=== PATIENT | male | born 1995 | race Two or more races ===

== ENCOUNTER 2023-08-22 15:53 | Emergency (ER) | payer OTHER ==
[~2023-08-22] VITALS: Ht 175.3 cm; Wt 90.0 kg
[2023-08-22 16:04] VITALS: BP 133/76
[2023-08-22 16:12] VITALS: RESP 18; O2SAT 97
[2023-08-22 17:18] LABS: COVID19 ANTIGEN SOFIA FIA NEGATIVE (NEGATIVE)
[2023-08-22] MEDS ORDERED: AZIT1POW PO (17:28)
== END 2023-08-22 21:52 | disposition left against medical advice (07) ==
LOC: ER 15:53
DX: J20.9 Acute bronchitis, unspecified (principal); F15.90 Other stimulant use, unspecified, uncomplicated; Z20.822 Contact with and (suspected) exposure to COVID-19; Z98.890 Other specified postprocedural states; Z79.899 Other long term (current) drug therapy
CPT/HCPCS: 36415; 71046; 87426